=== PATIENT | female | born 1965 | race Caucasian/White ===

== ENCOUNTER 2017-09-13 00:41 | Emergency (ER) | payer MEDICAID ==
[2017-09-13 00:42] VITALS: BMI 26.9
--- NOTE | 2017-09-13 00:43 | ED PDOC ---
Arrival/HPI - General Time Seen by Provider: 09/13/17 00:42 Historian: Patient - History of Present Illness Narrative History of Present Illness (Text): 09/13/17 00:43 52 y/o female, pmh including anermia, nkda, post menopausal, last tetanus doesn' t remember, c/o lt. hand 5th digit by slicer yesterday. Aching pain, aggravated by movement, no numbness or tingling, no night sweat, no dizziness, no chest pain or palpitation, no other medical or psychological complaints. Past Medical History - Provider Review Nursing Documentation Reviewed: Yes - Cardiac Hx Pacemaker: No - Pulmonary Hx Respiratory Disorders: No - Neurological Hx Paralysis: No - HEENT Hx HEENT Disorder: No - Hematological/Oncological Hx Blood Transfusions: No Hx Blood Transfusion Reaction: No - Musculoskeletal/Rheumatological Hx Musculoskeletal Disorders: No - Psychiatric Hx Emotional Abuse: No Hx Physical Abuse: No Hx Substance Use: No - Anesthesia Hx Anesthesia Reactions: No Hx Malignant Hyperthermia: No - Suicidal Assessment Feels Threatened In Home Enviroment: No Family/Social History - Physician Review Nursing Documentation Reviewed: Yes Family/Social History: Unknown Family HX Smoking Status: Never Smoked Hx Alcohol Use: No Hx Substance Use: No Allergies/Home Meds Allergies/Adverse Reactions: Allergies oak wood Adverse Reaction (Uncoded 01/30/15 20:15) SHORTNESS OF BREATH Home Medications: Home Meds Medication Instructions Recorded Confirmed Ferrous Sulfate 325 mg PO DAILY 04/20/15 04/21/15 Review of Systems - Review of Systems Constitutional: absent: Fatigue, Fevers Eyes: absent: Vision Changes ENT: absent: Hearing Changes Respiratory: absent: SOB, Cough Cardiovascular: absent: Chest Pain Gastrointestinal: absent: Abdominal Pain, Nausea, Vomiting Musculoskeletal: absent: Arthralgias, Back Pain Skin: Laceration. absent: Rash, Pruritis, Skin Lesions, Abscess, Ulcer, Cellulitis Neurological: absent: Headache, Dizziness Psychiatric: absent: Anxiety, Depression, Suicidal Ideation Physical Exam - Systems Exam Head: Present: Atraumatic, Normocephalic Pupils: Present: PERRL Extroacular Muscles: Present: EOMI Conjunctiva: Present: Normal Mouth: Present: Moist Mucous Membranes Neck: Present: Normal Range of Motion Respiratory/Chest: Present: Clear to Auscultation, Good Air Exchange. No: Respiratory Distress, Accessory Muscle Use Cardiovascular: Present: Regular Rate and Rhythm, Normal S1, S2. No: Murmurs Abdomen: Present: Normal Bowel Sounds. No: Tenderness, Distention, Peritoneal Signs Back: Present: Normal Inspection Upper Extremity: Present: Normal Inspection, Other (Lt. hand 5th digit ventral aspect of the proximal phalanx visible superficial avulsion wound with no laceration gap, FROM without limitation, sensation intact, motor 5/5, +radial pulse, capillary refill< 2 seconds, neurovascular intact. ). No: Cyanosis, Edema Lower Extremity: Present: Normal Inspection. No: Edema Neurological: Present: GCS=15, CN II-XII Intact, Speech Normal Skin: Present: Warm, Dry, Normal Color. No: Rashes Psychiatric: Present: Alert, Oriented x 3, Normal Insight, Normal Concentration Medical Decision Making ED Course and Treatment: 09/13/17 01:00 -tdap -wound irriate with normal saline, clean with betadine, bacitracin and gauze dressing. -Discharge home with bacitracin oinment, tylenol, follow up with your own pmd and hand specialist within 2 days, return to the ER for any new or worsening signs or symptoms. 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 Disposition/Present on Arrival - Present on Arrival Any Indicators Present on Arrival: No History of DVT/PE: No History of Uncontrolled Diabetes: No Urinary Catheter: No History of Decub. Ulcer: No History Surgical Site Infection Following: None - Disposition Have Diagnosis and Disposition been Completed?: Yes Diagnosis: Skin avulsion Disposition: HOME/ ROUTINE Disposition Time: 01:01 Patient Plan: Discharge Condition: GOOD Additional Instructions: -Discharge home with bacitracin oinment, tylenol, follow up with your own pmd and hand specialist within 2 days, return to the ER for any new or worsening signs or symptoms. Prescriptions: Acetaminophen [Tylenol 325mg tab] 2 tab PO QID PRN #30 tab PRN Reason: Other Bacitracin Ointment [Bacitracin] 1 appful TOP BID #15 g Referrals: [facility] – [place] [Outside] - Follow up with primary Forms: WORK NOTE
[2017-09-13] MEDS ORDERED: TDAP Vaccine 0.5 mL Syr IM ONE (01:02)
[2017-09-13 01:28] VITALS: RESP 17
[2017-09-13 01:53] VITALS: BP 147/84; PULSE 82; O2SAT 98
[2017-09-13 02:06] VITALS: TEMP 98.1
== END 2017-09-13 02:05 | disposition home or self-care (01) ==
LOC: ED 00:41
DX: S61.207A Unspecified open wound of left little finger without damage to nail, initial encounter (principal); W29.0XXA Contact with powered kitchen appliance, initial encounter; Y93.G1 Activity, food preparation and clean up; Y92.89 Other specified places as the place of occurrence of the external cause; Z23 Encounter for immunization

== ENCOUNTER 2017-09-22 22:39 | Emergency (ER) | payer MEDICAID ==
--- NOTE | 2017-09-22 23:41 | ED PDOC ---
Arrival/HPI - General Chief Complaint: Wound Check Time Seen by Provider: 09/22/17 23:36 Historian: Patient - History of Present Illness Narrative History of Present Illness (Text): 09/22/17 23:38 52 y/o female, pmh including anemia, post menopausal, who presents with left hand 5th digit pain s/p evaluation and treatment of an unsutured laceration. Pt describes pain at the wound site that is aggravated by flexion of the digit. Denies numbness or tingling, fever, chest pain or palpitation, shortness of breath or any other complaints. Pt was given Bacitracin and acetaminophen for home treatment. Time/Duration: 24 hours Symptom Onset: Gradual Symptom Course: Unchanged Quality: Aching, Pressure Severity Level: 3 Activities at Onset: Rest Context: Home Past Medical History - Provider Review Nursing Documentation Reviewed: Yes - Travel History Have you recently traveled outside [place] w/in the past 3 mons?: No - Infectious Disease Hx of Infectious Diseases: None - Cardiac Hx Pacemaker: No - Pulmonary Hx Respiratory Disorders: No - Neurological Hx Paralysis: No - HEENT Hx HEENT Disorder: No - Hematological/Oncological Hx Blood Transfusions: No Hx Blood Transfusion Reaction: No - Musculoskeletal/Rheumatological Hx Musculoskeletal Disorders: No - Psychiatric Hx Emotional Abuse: No Hx Physical Abuse: No Hx Substance Use: No - Surgical History Hx Gastric Bypass Surgery: Yes (8 years ago) - Anesthesia Hx Anesthesia Reactions: No Hx Malignant Hyperthermia: No - Suicidal Assessment Feels Threatened In Home Enviroment: No Family/Social History - Physician Review Nursing Documentation Reviewed: Yes Family/Social History: Unknown Family HX Smoking Status: Never Smoked Hx Alcohol Use: No Hx Substance Use: No Allergies/Home Meds Allergies/Adverse Reactions: Allergies oak wood Adverse Reaction (Uncoded 09/22/17 23:45) SHORTNESS OF BREATH Home Medications: Home Meds Medication Instructions Recorded Confirmed Ferrous Sulfate [Feosol] 325 mg PO DAILY 09/22/17 09/22/17 Review of Systems - Review of Systems Constitutional: Normal Eyes: Normal ENT: Normal Respiratory: Normal Cardiovascular: Normal Gastrointestinal: Normal Genitourinary Female: Normal Musculoskeletal: Normal Skin: Laceration (left hand 5th digit ventral aspect) Neurological: Normal Endocrine: Normal Hemo/Lymphatic: Normal Psychiatric: Normal Physical Exam Vital Signs Reviewed: Yes Vital Signs Temp Pulse Resp BP Pulse Ox 09/22/17 23:46 97.6 F 71 18 152/79 H 100 Temperature: Afebrile Blood Pressure: Normal Pulse: Regular Respiratory Rate: Normal Appearance: Positive for: Well-Appearing, Non-Toxic, Comfortable Pain Distress: None Mental Status: Positive for: Alert and Oriented X 3 - Systems Exam Head: Present: Atraumatic, Normocephalic Pupils: Present: PERRL Extroacular Muscles: Present: EOMI Conjunctiva: Present: Normal Mouth: Present: Moist Mucous Membranes Neck: Present: Normal Range of Motion Respiratory/Chest: Present: Clear to Auscultation, Good Air Exchange. No: Respiratory Distress, Accessory Muscle Use Cardiovascular: Present: Regular Rate and Rhythm, Normal S1, S2. No: Murmurs Abdomen: Present: Normal Bowel Sounds. No: Tenderness, Distention, Peritoneal Signs Back: Present: Normal Inspection Upper Extremity: Present: Normal Inspection. No: Cyanosis, Edema Lower Extremity: Present: Normal Inspection. No: Edema Neurological: Present: GCS=15, CN II-XII Intact, Speech Normal, Motor Func Grossly Intact, Normal Sensory Function Skin: Present: Warm, Dry, Normal Color, Laceration (left hand 5th digit ventral aspect; oblique laceration with intact skin flap). No: Rashes Psychiatric: Present: Alert, Oriented x 3, Normal Insight, Normal Concentration Medical Decision Making ED Course and Treatment: 09/22/17 23:40 52 y/o female, pmh including anemia, nkda, post menopausal, c/o lt. hand 5th digit pain s/p eval and treatment a few days ago. On exam, wound site has intact skin flap with evidence of appropriate granulation of tissue and healing; edges of wound and surrounding tissue are non -erythematous, no purulent material, no warmth or swelling, cap refill <2 secs, motor and sensation intact Plan clean, assess and dispo Progress Note wound healing well but likley sore from flexion at the joint; advised pt to wear protective gloves at work, keep wound clean and dry decision was made to seal with Dermabond for extra protection Advised to follow up with PCP in the next 3-5 days Disposition/Present on Arrival - Present on Arrival Any Indicators Present on Arrival: Yes History of DVT/PE: No History of Uncontrolled Diabetes: No Urinary Catheter: No History Surgical Site Infection Following: None - Disposition Have Diagnosis and Disposition been Completed?: Yes Diagnosis: Encounter for wound re-check Disposition: HOME/ ROUTINE Disposition Time: 01:07 Patient Plan: Discharge Condition: GOOD Discharge Instructions (ExitCare): Laceration Repair With Glue (DC) Additional Instructions: Please follow up with your Primary care doctor in the next week. Return to the ER if you suspect infection such as a fever, or redness of the hand and wrist. All the best in your recovery Referrals: Jose Alejandro Mata MD [Medical Doctor] - Follow up with primary Forms: [employer] ([place])
[2017-09-22 23:47] VITALS: BP 152/79; PULSE 71; RESP 18; TEMP 97.6; O2SAT 100; BMI 25.9
== END 2017-09-23 01:12 | disposition home or self-care (01) ==
LOC: ED 22:39
DX: Z51.89 Encounter for other specified aftercare (principal)

== ENCOUNTER 2017-12-01 14:27 | Emergency (ER) | payer MEDICAID ==
[2017-12-01 14:28] VITALS: BMI 25.9
[2017-12-01 14:57] VITALS: RESP 16
--- NOTE | 2017-12-01 15:36 | ED PDOC ---
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 Time/Duration: Other (3 days) Symptom Onset: Gradual Symptom Course: Unchanged, Intermittent Quality: Aching Severity Level: 2 Activities at Onset: Rest Context: Sitting Past Medical History - Provider Review Nursing Documentation Reviewed: Yes - Travel History Have you recently traveled outside [place] w/in the past 3 mons?: No - Infectious Disease Hx of Infectious Diseases: None - Cardiac Hx Cardiac Disorders: Yes Hx Hypotension: Yes - Pulmonary Hx Respiratory Disorders: No - Neurological Hx Neurological Disorder: No - HEENT Hx HEENT Disorder: No - Renal Hx Renal Disorder: No - Endocrine/Metabolic Hx Endocrine Disorders: No - Hematological/Oncological Hx Blood Disorders: Yes Hx Anemia: Yes - Integumentary Hx Dermatological Disorder: No - Musculoskeletal/Rheumatological Hx Musculoskeletal Disorders: No - Gastrointestinal Hx Gastrointestinal Disorders: No - Genitourinary/Gynecological Hx Genitourinary Disorders: No - Psychiatric Hx Psychophysiologic Disorder: No Hx Substance Use: No - Surgical History Hx Gastric Bypass Surgery: Yes (8 years ago) - Anesthesia Hx Anesthesia Reactions: No Hx Malignant Hyperthermia: No - Suicidal Assessment Feels Threatened In Home Enviroment: No Family/Social History - Physician Review Nursing Documentation Reviewed: Yes Family/Social History: Unknown Family HX Smoking Status: Never Smoked Hx Alcohol Use: No Hx Substance Use: No Allergies/Home Meds Allergies/Adverse Reactions: Allergies oak wood Adverse Reaction (Uncoded 12/01/17 14:38) SHORTNESS OF BREATH Home Medications: Home Meds Medication Instructions Recorded Confirmed Ferrous Sulfate [Feosol] 325 mg PO DAILY 09/22/17 12/01/17 Review of Systems - Review of Systems Constitutional: Normal Eyes: Normal ENT: Normal Respiratory: Normal Cardiovascular: Normal Gastrointestinal: Normal Genitourinary Female: Vaginal Bleeding Musculoskeletal: Arthralgias Skin: Normal Neurological: Normal Endocrine: Normal Hemo/Lymphatic: Normal Psychiatric: Normal Physical Exam Vital Signs Reviewed: Yes Vital Signs Temp Pulse Resp BP Pulse Ox 12/01/17 16:27 87 16 151/90 H 99 12/01/17 14:38 98.6 F 77 16 133/84 96 Temperature: Afebrile Blood Pressure: Hypertensive Pulse: Regular Respiratory Rate: Normal Appearance: Positive for: Well-Appearing, Non-Toxic, Comfortable Pain Distress: None Mental Status: Positive for: Alert and Oriented X 3 - Systems Exam Head: Present: Atraumatic, Normocephalic Pupils: Present: PERRL Extroacular Muscles: Present: EOMI Conjunctiva: Present: Normal Ears: Present: Normal Mouth: Present: Moist Mucous Membranes Pharnyx: Present: Normal Nose (External): Present: Atraumatic Nose (Internal): Present: Normal Inspection Neck: Present: Normal Range of Motion Respiratory/Chest: Present: Clear to Auscultation, Good Air Exchange Cardiovascular: Present: Regular Rate and Rhythm Abdomen: No: Tenderness, Distention, Normal Bowel Sounds, Peritoneal Signs, Rebound, Guarding, McBurney's Point Tender, Rovsing's Sign Present, Hernias, Feeding Tubes, Ostomy Tubes, Mass/Organomegaly, Scars, Other Back: Present: Normal Inspection Upper Extremity: Present: Normal Inspection, Other (except: left shoulder positive range of motion with tenderness but otherwise warm/sensation/pink/good radial pulse and no other bony or spinal tenderness) Lower Extremity: Present: Normal Inspection Neurological: Present: GCS=15, CN II-XII Intact, Speech Normal, Motor Func Grossly Intact Skin: Present: Warm, Normal Color Psychiatric: Present: Alert, Oriented x 3, Normal Insight, Normal Concentration Medical Decision Making ED Course and Treatment: you were treated in the ED today for hx of hypertension but not on medication at this time, 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 You were otherwise breathing easily, smiling and laughing with your daughter, good strength/sensation, walking easily, clear lungs, no abdomen tenderness, left shoulder positive range of motion with tenderness but otherwise warm/sensation/pink/good radial pulse and no other bony or spinal tenderness, no fever temp 98.6, stable heart rate 77, stable breathing rate 16, excellent oxygen level 96% room air, elevated blood pressure 133/84 which we recommend repeat in 2-3 days primary care office to determine further treatment , you have blood tests no infection count 4, stable blood level hemoglobin 9.4/ platelets 250, stable chemistry, heart blood test negative less than 0.01, left shoulder xray radiology no acute sign of fracture, ECG normal sinus rhythm, toradol, flexeril, tramadol, observation done in the ED with improvement, counselled to use sling as directed till first clinic visit/heating pad for muscle relief and rest till first clinic visit and thus discharged home with daughter. 1. Recommend motrin as directed for mild pain. 2. Recommend flexeril as directed for breakthrough muscle pain and don't work/drive/drink alcohol when using. recomend tramadol as directed for breakthrough overall pain and don' t work/drive/drink alcohol when using. 3. Recommend follow-up primary care 2-3 days to review symptoms, referral to orthopedics clinic as directed. 4. If any worsening pain, fever, chills, nausea, vomiting, difficulty breathing, numbness , loss of limb function, pain with urination or any medical condition then return to the ED. Reassessment Condition: Re-examined, Improved - Lab Interpretations Lab Results: 12/01/17 16:10 12/01/17 16:10 Lab Results 12/01/17 16:10: PT 12.1, INR 1.06, APTT 33.0 12/01/17 16:10: Sodium 143, Potassium 3.8, Chloride 106, Carbon Dioxide 27, Anion Gap 14, BUN 11, Creatinine 0.4 L, Est GFR ( Amer) > 60, Est GFR ( Non-Af Amer) > 60, Random Glucose 103, Calcium 8.9, Magnesium 2.0, Total Bilirubin 0.3, AST 19, ALT 18, Alkaline Phosphatase 43, Lactate Dehydrogenase 310 L, Total Creatine Kinase 30 L, Troponin I < 0.01, Total Protein 7.8, Albumin 4.1, Globulin 3.7, Albumin/Globulin Ratio 1.1 12/01/17 16:10: WBC 4.1 L, RBC 4.50, Hgb 9.4 L, Hct 31.9 L, MCV 70.9 L, MCH 20.9 L, MCHC 29.5 L, RDW 16.9 H, Plt Count 250, MPV 9.2, Gran % 49.7 L, Lymph % (Auto) 36.1 H, [facility] % (Auto) 9.8 H, Eos % (Auto) 3.9, Baso % (Auto) 0.5, Gran # 2.02, Lymph # (Auto) 1.5, [facility] # (Auto) 0.4, Eos # (Auto) 0.2, Baso # (Auto) 0.02 I have reviewed the lab results: Yes - RAD Interpretation Radiology Orders: 12/01/17 15:31 SHOULDER LEFT [RAD] Stat - EKG Interpretation Interpreted by ED Physician: Yes (NSR, flipped t waves avr, v1, flattened iii.) Type: 12 lead EKG - Medication Orders Current Medication Orders: Discontinued Medications Cyclobenzaprine HCl (Flexeril) 10 mg PO STAT STA Stop: 12/01/17 15:32 Last Admin: 12/01/17 15:47 Dose: 10 mg Ketorolac Tromethamine (Toradol) 30 mg IVP STAT STA Stop: 12/01/17 15:32 Last Admin: 12/01/17 15:52 Dose: 30 mg MAR Pain Assessment Document 12/01/17 15:52 MS (Rec: 12/01/17 16:00 MS [id number]) Pain Reassessment Is this a pain reassessment? No Sleep Is patient sleeping during reassessment? No Presence of Pain Presence of Pain Yes Pain Scale Used Pain Scale Used Numeric Location Left, Right or Bilateral Left Pain Location Body Site Shoulder Description Description Constant Intensity of Pain at present 7 Pain Behavior Moaning Irritability Grasping Site Facial Grimacing IVP Administration Document 12/01/17 15:52 MS (Rec: 12/01/17 16:00 MS [id number]) Charges for Administration # of IVP Administrations 1 Tramadol HCl (Ultram) 50 mg PO STAT STA Stop: 12/01/17 17:34 Disposition/Present on Arrival - Present on Arrival Any Indicators Present on Arrival: No History of DVT/PE: No History of Uncontrolled Diabetes: No Urinary Catheter: No History of Decub. 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 You were otherwise breathing easily, smiling and laughing with your daughter, good strength/sensation, walking easily, clear lungs, no abdomen tenderness, left shoulder positive range of motion with tenderness but otherwise warm/sensation/pink/good radial pulse and no other bony or spinal tenderness, no fever temp 98.6, stable heart rate 77, stable breathing rate 16, excellent oxygen level 96% room air, elevated blood pressure 133/84 which we recommend repeat in 2-3 days primary care office to determine further treatment , you have blood tests no infection count 4, stable blood level hemoglobin 9.4/ platelets 250, stable chemistry, heart blood test negative less than 0.01, left shoulder xray radiology no acute sign of fracture, ECG normal sinus rhythm, toradol, flexeril, tramadol, observation done in the ED with improvement, counselled to use sling as directed till first clinic visit/heating pad for muscle relief and rest till first clinic visit and thus discharged home with daughter. 1. Recommend motrin as directed for mild pain. 2. Recommend flexeril as directed for breakthrough muscle pain and don't work/drive/drink alcohol when using. recomend tramadol as directed for breakthrough overall pain and don' t work/drive/drink alcohol when using. 3. Recommend follow-up primary care 2-3 days to review symptoms, referral to orthopedics clinic as directed. 4. If any worsening pain, fever, chills, nausea, vomiting, difficulty breathing, numbness , loss of limb function, pain with urination or any medical condition then return to the ED. Prescriptions: Cyclobenzaprine [Cyclobenzaprine HCl] 10 mg PO Q8 PRN 5 Days #15 tab PRN Reason: breakthrough pain traMADol [Ultram] 50 mg PO DAILY PRN 3 Days #3 tab PRN Reason: breakthrough pain Referrals: Adeline Potts [Primary Care Provider] - Follow up with primary Forms: [facility] (Fijian), WORK NOTE
[2017-12-01 16:34] LABS: BASO # 0.02 K/mm3 (0.0-2.0); BASO % 0.5 % (0.0-3.0); EOS # 0.2 (0.0-0.7); EOS % 3.9 % (1.5-5.0); GRAN # 2.02 (1.4-6.5); GRAN % 49.7 % (50.0-68.0); HEMOGLOBIN 9.4 g/dL (12.0-16.0); LYMPH # 1.5 (1.2-3.4); LYMPH % 36.1 % (22.0-35.0); MEAN CELL VOLUME 70.9 fl (80.0-105.0); MEAN CORPUSCULAR HEMOGLOBIN 20.9 pg (25.0-35.0); MEAN CORPUSCULAR HGB CONC 29.5 g/dl (31.0-37.0); MEAN PLATELET VOLUME 9.2 fl (7.0-11.0); MONO # 0.4 (0.1-0.6); MONO % 9.8 % (1.0-6.0); RBC 4.5 10^6/uL (3.5-6.1); RED CELL DISTRIBUTION WIDTH 16.9 % (11.5-14.5); WHITE BLOOD COUNT 4.1 10^3/ul (4.5-11.0)
[2017-12-01 16:39] LABS: ALB/GLOB RATIO 1.1 (1.1-1.8); ALBUMIN 4.1 g/dL (3.0-4.8); ALT/SGPT 18 U/L (7-56); AST/SGOT 19 U/L (14-36); BLOOD UREA NITROGEN 11 mg/dL (7-21); CALCIUM 8.9 mg/dL (8.4-10.5); GFR AFRICAN-AMERICAN > 60; GFR NON-AFRICAN AMERICAN > 60
[2017-12-01 16:41] LABS: INR 1.06 (0.93-1.08); PROTHROMBIN TIME 12.1 SECONDS (9.4-12.5)
[2017-12-01 16:49] LABS: TROPONIN I < 0.01 ng/mL
--- NOTE | 2017-12-01 17:49 | RAD ---
PROCEDURE: Radiographs of the Left Shoulder HISTORY: 52yoF, left shoulder pain COMPARISON: No prior. FINDINGS: BONES: Normal. No fracture. JOINTS: Normal. Glenohumeral and acromioclavicular joints relatively preserved. No significant Osteoarthritis. SOFT TISSUES: Normal. OTHER FINDINGS: None. IMPRESSION: No evidence of acute displaced fracture nor dislocation. .
[2017-12-01 17:53] VITALS: O2SAT 99
[2017-12-01 19:25] VITALS: BP 150/88; PULSE 77; TEMP 97.9
[2017-12-02] MEDS ORDERED: Albuterol-Ipratrop 3 mg / 0.5 (3 ml) UD ONE (02:47)
--- NOTE | 2017-12-02 14:30 | CARD ---
APPROVED REPORT EKG Measurement Heart [id number] <Conclusion> Normal sinus rhythm Normal ECG
== END 2017-12-01 18:30 | disposition home or self-care (01) ==
LOC: ED 14:27
DX: S49.92XA Unspecified injury of left shoulder and upper arm, initial encounter (principal); X50.9XXA Other and unspecified overexertion or strenuous movements or postures, initial encounter; Y99.0 Civilian activity done for income or pay; I10 Essential (primary) hypertension
CPT/HCPCS: 73030; 80053; 82550; 83615; 83735; 84484; 85025; 85610; 85730; 93005; 96374; 99282; J1885

== ENCOUNTER 2018-01-01 20:56 | Emergency (ER) | payer SELFPAY ==
[2018-01-01 20:57] VITALS: BMI 25.9
--- NOTE | 2018-01-01 21:38 | ED PDOC ---
Arrival/HPI - General Chief Complaint: Chest Pain Time Seen by Provider: 01/01/18 21:37 Historian: Patient - History of Present Illness Narrative History of Present Illness (Text): 01/01/18 21:38 This 52 yo female who denies pmh, presents to this ED c/o left anterior chest wall pain x 5 days. Patient stated a heavy box fell down from a cabinet on her chest at work. Patient stated pain was mild at first, but it has been progressively worsening. Pain is worsen with deep inspiration, palpation and movement. Patient denies other somatic complains. Time/Duration: Other (see hpi) Context: Home Past Medical History - Provider Review Nursing Documentation Reviewed: Yes - Infectious Disease Hx of Infectious Diseases: None - Cardiac Hx Cardiac Disorders: Yes Hx Hypertension: Yes - Pulmonary Hx Respiratory Disorders: No - Neurological Hx Neurological Disorder: No - HEENT Hx HEENT Disorder: No - Renal Hx Renal Disorder: No - Endocrine/Metabolic Hx Endocrine Disorders: No - Hematological/Oncological Hx Blood Disorders: Yes Hx Anemia: Yes - Integumentary Hx Dermatological Disorder: No - Musculoskeletal/Rheumatological Hx Musculoskeletal Disorders: No - Gastrointestinal Hx Gastrointestinal Disorders: No - Genitourinary/Gynecological Hx Genitourinary Disorders: No - Psychiatric Hx Psychophysiologic Disorder: No Hx Substance Use: No - Surgical History Hx Gastric Bypass Surgery: Yes - Anesthesia Hx Anesthesia: Yes Hx Anesthesia Reactions: No Hx Malignant Hyperthermia: No - Suicidal Assessment Feels Threatened In Home Enviroment: No Family/Social History - Physician Review Nursing Documentation Reviewed: Yes Family/Social History: Other (noncontributory) Smoking Status: Never Smoked Hx Alcohol Use: No Hx Substance Use: No Allergies/Home Meds Allergies/Adverse Reactions: Allergies oak wood Adverse Reaction (Uncoded 01/01/18 20:58) SHORTNESS OF BREATH Home Medications: Home Meds Medication Instructions Recorded Confirmed Ferrous Sulfate [Feosol] 325 mg PO DAILY 09/22/17 01/01/18 Review of Systems - Review of Systems Constitutional: Normal. absent: Fatigue, Weight Change, Fevers Eyes: Normal ENT: Normal Respiratory: Normal Cardiovascular: Normal Gastrointestinal: Normal Genitourinary Female: Normal Musculoskeletal: Other (Chest wall pain) Skin: Normal Neurological: Normal Endocrine: Normal Hemo/Lymphatic: Normal Psychiatric: Normal Physical Exam Vital Signs Temp Pulse Resp BP Pulse Ox 01/01/18 20:59 99.1 F 83 16 137/90 98 Temperature: Afebrile Blood Pressure: Normal Pulse: Regular Respiratory Rate: Normal Appearance: Positive for: Well-Appearing, Non-Toxic, Comfortable Pain Distress: None Mental Status: Positive for: Alert and Oriented X 3 - Systems Exam Head: Present: Atraumatic, Normocephalic Pupils: Present: PERRL Extroacular Muscles: Present: EOMI Conjunctiva: Present: Normal Mouth: Present: Moist Mucous Membranes Neck: Present: Normal Range of Motion Respiratory/Chest: Present: Clear to Auscultation, Good Air Exchange, Tender to Palpation ((+) left chest wall pain is 100 % reproducible. No ecchymosis or swelling). No: Respiratory Distress, Accessory Muscle Use, Wheezes, Decreased Breath Sounds, Rales, Retracting, Rhonchi Cardiovascular: Present: Regular Rate and Rhythm, Normal S1, S2. No: Murmurs Abdomen: Present: Tenderness, Normal Bowel Sounds. No: Distention, Peritoneal Signs, Rebound, Guarding Back: Present: Normal Inspection Upper Extremity: Present: Normal Inspection, Normal ROM Lower Extremity: Present: Normal Inspection, Normal ROM Neurological: Present: GCS=15, CN II-XII Intact, Speech Normal, Motor Func Grossly Intact, Normal Sensory Function, Normal Cerebellar Funct, Gait Normal, Memory Normal Skin: Present: Warm, Dry, Normal Color. No: Rashes Psychiatric: Present: Alert, Oriented x 3, Normal Insight, Normal Concentration Medical Decision Making ED Course and Treatment: 01/01/18 23:33 Re-evaluation. Patient feels better. Discussed results and plan with patient who expresses understanding. All questions answered and there is agreement with the plan to discharge home with instructions. Patient stable for discharge. Return if symptoms persist or worsen. Re-evaluation Time: 23:33 Reassessment Condition: Re-examined, Improved - RAD Interpretation Narrative RAD Interpretations (Text): 01/01/18 23:33 Chest x-rays/rib x-rays: NAD. No rib Fx. No pneumo Radiology Orders: 01/01/18 21:39 RIBS LEFT & PA CHEST [RAD] Stat - Medication Orders Current Medication Orders: Discontinued Medications Ketorolac Tromethamine (Toradol) 30 mg IM STAT STA Stop: 01/01/18 21:40 Last Admin: 01/01/18 22:09 Dose: 30 mg MAR Pain Assessment Document 01/01/18 22:09 LA (Rec: 01/01/18 22:10 LA [id number]) Pain Reassessment Is this a pain reassessment? No Sleep Is patient sleeping during reassessment? No Presence of Pain Presence of Pain Yes Pain Scale Used Pain Scale Used Numeric Location Left, Right or Bilateral Left Upper or Lower Upper Pain Location Body Site Chest Description Description Intermittent Intensity of Pain at present 10 Pain Behavior Guarding IM Administration Charges Document 01/01/18 22:09 LA (Rec: 01/01/18 22:10 LA [id number]) Injection Site MAR Injection Site Left Arm Charges for Administration # of IM Administrations 1 Re-Assess: MEAGAN Pain Assessment Document 01/01/18 23:09 LA (Rec: 01/01/18 23:21 LA [id number]) Pain Reassessment Is this a pain reassessment? Yes Sleep Is patient sleeping during reassessment? Yes Disposition/Present on Arrival - Present on Arrival Any Indicators Present on Arrival: No History of DVT/PE: No History of Uncontrolled Diabetes: No Urinary Catheter: No History of Decub. Ulcer: No History Surgical Site Infection Following: None - Disposition Have Diagnosis and Disposition been Completed?: Yes Diagnosis: Chest wall pain Disposition: HOME/ ROUTINE Disposition Time: 23:34 Patient Plan: Discharge Patient Problems: Current Active Problems Problem Status Onset Chest wall pain Acute Condition: IMPROVED Discharge Instructions (ExitCare): Costochondritis Additional Instructions: Call private doctor for follow up visit in 1-2 days. Take medication as instructed with food. Do incentive spirometer exercise every 2 hours for 10 minutes for at least 5 days. Return to emergency if pain worsen. Follow up official x-rays report with your doctor in 1-[address] machinery if you take Tramadol for at least 12 hours. Prescriptions: Famotidine [Pepcid] 40 mg PO DAILY #10 tablet Naproxen 500 mg PO BID PRN #14 tablet PRN Reason: Pain, Severe (8-10) traMADol [Ultram] 50 mg PO TID PRN #15 tab PRN Reason: Pain, Severe (8-10) Referrals: Krysten Paul [Family Provider] - Follow up with primary Forms: [employer] [facility] (Portuguese), WORK NOTE
[2018-01-02 00:01] VITALS: BP 130/89; PULSE 75; RESP 17; TEMP 98; O2SAT 100
--- NOTE | 2018-01-02 15:24 | RAD ---
PROCEDURE: Radiographs of the Chest and Left Ribs. HISTORY: pain r/o trauma COMPARISON: None available. TECHNIQUE: Frontal radiograph of the chest and multiple oblique radiographs of the left ribs were obtained. FINDINGS: LEFT RIBS: The at current study reveals no definitive radiographic evidence of acute displaced left-sided rib fracture. . LUNGS: No focal consolidation. PLEURA: No pneumothorax or pleural fluid. CARDIOVASCULAR: Normal sized heart. No pulmonary vascular congestion. OTHER FINDINGS: Metallic surgical clips and radiopaque suture material left upper and mid abdomen 1st IMPRESSION: Unremarkable radiographs of the chest and left ribs. No left rib fracture. If symptoms persist or occult fracture suspected clinically consider followup CT scan chest
--- NOTE | 2018-01-02 19:00 | CARD ---
APPROVED REPORT EKG Measurement Heart [id number] <Conclusion> Normal sinus rhythm Cannot rule out Anterior infarct, age undetermined Abnormal ECG
== END 2018-01-01 23:45 | disposition home or self-care (01) ==
LOC: ED 20:56
DX: R07.89 Other chest pain (principal); I10 Essential (primary) hypertension; D64.9 Anemia, unspecified
CPT/HCPCS: 71101; 93005; 96372; 99283; J1885